=== PATIENT | male | born 1960 | race Caucasian/White ===

== ENCOUNTER 2020-11-13 07:40 | Day surgery (SDC) | payer BC ==
[~2020-11-13 07:40] MED LIST: Acetaminophen 325 MG Tab PO SCH; Albuterol 0.083% 2.5 MG/3 ML Neb Soln NEB PRN; Lactated Ringers 1,000 ML IV SCH; Lidocaine 1% 4 ML ONE; Lidocaine 1%/Sod Bicarbonate in NS 8.4% 1 ML Syringe IDERM PRN; Midazolam 1 MG/ML 2 ML SDV ONE; Ondansetron 4 MG/2 ML SDV ONE; Pregabalin 25 MG Cap PO SCH; Propofol 200 MG/20 ML SDV ONE; Scopolamine 1.5 MG Transdermal Patch TRDERM SCH; Sodium Chloride 0.9% 10 ML Syringe FLUSH PRN; ceFAZolin 1 GM Vial ONE; fentaNYL 100 MCG/2 ML SDV ONE; oxyCODONE ER 10 MG TAB.ER PO SCH
[2020-11-13] MEDS ORDERED: Ropivacaine 0.5% 5 MG/ML 30 ML SDV ONE (07:43)
[2020-11-13] MEDS ORDERED: EPINEPHrine 1 MG/ML SDV ONE (07:43)
[2020-11-13] MEDS ORDERED: fentaNYL 100 MCG/2 ML SDV IVPUSH PRN (07:51)
[2020-11-13] MEDS ORDERED: Ondansetron 4 MG/2 ML SDV IVPUSH PRN (07:51)
[2020-11-13] MEDS ORDERED: diphenhydrAMINE 50 MG/ML SDV IVPUSH PRN (07:51)
[2020-11-13] MEDS ORDERED: Lidocaine 1% 2 ML ONE (07:52)
--- NOTE | 2020-11-13 07:57 | PCM.PREANE ---
Preanesthetic Assessment - Procedure Proposed Procedure: Right reverse total shoulder arthroplasty - Anesthesia/Transfusion/Family Hx Anesthesia History: Prior Anesthesia Reaction Type of Anesthesia Reaction: Excessive Nausea/Vomiting Family History of Anesthesia Reaction: Yes (nausea/ vomitting) Transfusion History: No Prior Transfusion(s) Intubation History: Unknown - Review of Systems General: No Symptoms Pulmonary: No Symptoms, Other (dust triggers asthma - uses inhaler once a month ) Cardiovascular: No Symptoms Gastrointestinal: No Symptoms Neurological: No Symptoms Other: Reports: None - Physical Assessment NPO Status Date: 11/12/20 NPO Status Time: 00:00 Height: 71 cm Weight: 93 kg ASA Class: 2 Mental Status: Alert & Oriented x3 Airway Class: Mallampati = 1 Dentition: Reports: Normal Dentition Thyro-Mental Finger Breadths: 3 Mouth Opening Finger Breadths: 5 ROM/Head Extension: Full Lungs: Clear to Auscultation, Normal Respiratory Effort Cardiovascular: Regular Rate, Regular Rhythm - Lab Values: Laboratory Last Values MRSA (PCR) Negative 11/01/20 14:13 - Allergies Allergies/Adverse Reactions: Allergies Allergy/AdvReac Type Severity Reaction Status Date / Time animal dander Allergy Sneezing Verified 11/10/20 14:09 house dust Allergy Sneezing Verified 11/10/20 14:09 amoxicillin [From Augmentin] AdvReac Chest Pain Verified 11/10/20 15:08 clavulanic acid AdvReac Chest Pain Verified 11/10/20 15:08 [From Augmentin] - Blood Blood Available: No - Anesthesia Plan Pre-Op Medication Ordered: None - Acknowledgements Anesthesia Type Planned: General Anesthesia Pt an Appropriate Candidate for the Planned Anesthesia: Yes Alternatives and Risks of Anesthesia Discussed w Pt/Guardian: Yes Pt/Guardian Understands and Agrees with Anesthesia Plan: Yes PreAnesthesia Questionnaire HEENT History: Reports: Hard of Hearing, Impaired Vision, Other (See Below) Other HEENT History: TMJ disorder, wears glasses, has hearing aides Cardiovascular History: Reports: High Cholesterol Respiratory History: Reports: Asthma Gastrointestinal History: Reports: Gastritis, Other (See Below) Other Gastrointestinal History: reflux Genitourinary History: Reports: None PILLAR MAN History: Reports: None Musculoskeletal History: Reports: Other (See Below) Other Musculoskeletal History: lateral epicondylitis, left rotator cuff repair Neurological History: Reports: None Psychiatric History: Reports: None Endocrine/Metabolic History: Reports: None Hematologic History: Reports: None Immunologic History: Reports: None Oncologic (Cancer) History: Reports: None - Past Surgical History Head Surgeries/Procedures: Reports: None HEENT Surgical History: Reports: Tonsillectomy Cardiovascular Surgical History: Reports: None Respiratory Surgical History: Reports: None GI Surgical History: Reports: Appendectomy, Cholecystectomy, EGD Female Surgical History: Reports: None Male Surgical History: Reports: None Endocrine Surgical History: Reports: None Neurological Surgical History: Reports: C-Spine, Other (See Below) Other Neurological Surgeries/Procedures: [id number] fusion Oncologic Surgical History: Reports: None Dermatological Surgical History: Reports: None - SUBSTANCE USE Tobacco Use Status *Q: Never Tobacco User Days Per Week of Alcohol Use: 3 Number of Drinks Per Day: 2 Total Drinks Per Week: 6 Recreational Drug Use History: No - HOME MEDS Home Medications: Home Meds Albuterol [Ventolin HFA] 2 puff INH Q4H PRN 11/10/20 [History] Ibuprofen 400 mg PO Q6H PRN 11/10/20 [History] Multivitamin 1 tab PO DAILY 11/10/20 [History] [place]-3 Fatty Acids/Fish Oil [Fish Oil 1,000 mg Capsule] 1 cap PO DAILY 11/10/20 [History] Turmeric Root Extract [Turmeric Curcumin] 500 mg PO DAILY 11/10/20 [History] Aspirin [Aspirin EC] 325 mg PO DAILY #40 tablet.dr 11/13/20 [Rx] Cyclobenzaprine [Flexeril] 10 mg PO BID PRN #20 tab 11/13/20 [Rx] oxyCODONE 5 - 10 mg PO Q4H PRN #40 tab 11/13/20 [Rx] - CURRENT (IN HOUSE) MEDS Current Meds: Current Medications Acetaminophen (Tylenol) 975 mg PO ONETIME ROLANDO Stop: 11/13/20 14:00 Last Admin: 11/13/20 07:50 Dose: 975 mg Documented by: Albuterol (Proventil Neb Soln) 2.5 mg NEB ONETIME PRN PRN Reason: Asthma Stop: 11/13/20 18:00 Lactated Ringer's (Ringers, Lactated) 1,000 mls @ 125 mls/hr IV ASDIRECTED ROLANDO Stop: 11/13/20 23:00 Lidocaine/Sodium Bicarbonate (Buffered Lidocaine 1% In Ns 8.4%) 0.25 ml IDERM ONETIME PRN PRN Reason: Prior to IV Start Stop: 11/13/20 18:00 Oxycodone HCl (Oxycontin) 10 mg PO ONETIME ROLANDO Stop: 11/13/20 14:00 Last Admin: 11/13/20 07:50 Dose: 10 mg Documented by: Pregabalin (Lyrica) 50 mg PO ONETIME ROLANDO Stop: 11/13/20 14:00 Last Admin: 11/13/20 07:50 Dose: 50 mg Documented by: Scopolamine (Transderm-Scop) 1.5 mg TRDERM ONETIME ROLANDO Stop: 11/13/20 14:00 Last Admin: 11/13/20 07:51 Dose: 1.5 mg Documented by: Sodium Chloride (Saline Flush) 10 ml FLUSH ASDIRECTED PRN PRN Reason: Keep Vein Open Stop: 11/13/20 18:00 Discontinued Medications Cefazolin Sodium (Ancef) Confirm Administered Dose 2 gm .ROUTE .STK-MED ONE Stop: 11/13/20 07:40 Epinephrine HCl (Adrenalin) Confirm Administered Dose 1 mg .ROUTE .STK-MED ONE Stop: 11/13/20 07:44 Fentanyl (Sublimaze) Confirm Administered Dose 100 mcg .ROUTE .STK-MED ONE Stop: 11/13/20 07:32 Lidocaine HCl (Xylocaine-Mpf 1%) Confirm Administered Dose 4 mls @ as directed .ROUTE .STK-MED ONE Stop: 11/13/20 07:32 Midazolam HCl (Versed 1 Mg/Ml) Confirm Administered Dose 2 mg .ROUTE .STK-MED ONE Stop: 11/13/20 07:32 Ondansetron HCl (Zofran) Confirm Administered Dose 4 mg .ROUTE .STK-MED ONE Stop: 11/13/20 07:40 Propofol (Diprivan 20 Ml) Confirm Administered Dose 400 mg .ROUTE .STK-MED ONE Stop: 11/13/20 07:32 Ropivacaine (Naropin 0.5%) Confirm Administered Dose 30 ml .ROUTE .STK-MED ONE Stop: 11/13/20 07:44
[2020-11-13] MEDS ORDERED: Vancomycin 1 GM SDV ONE (08:12)
--- NOTE | 2020-11-13 08:38 | PCM.SN.2 ---
- Free Text/Narrative Note: Date: 11/13/2020 Time Out: 814 Start: 814 Stop: 824 Surgical Procedure: Right reverse total shoulder arthroplasty Diagnosis Right Shoulder OA Current Procedure: Right interscalene block under US guidance for postoperative pain control requested by Dr. Singh. Patient chart reviewed, risk/benefits discussed with patient, consent obtained. Patient positioned supine, monitors/alarms on, oxygen placed via nasal cannula at 2 LPM. IV sedation administered: Versed 2mg IV, Fentanyl 100mcg IV given in preop prior to block placement. Right shoulder prepped with two chloropreps. Sterile drapes placed with aseptic technique noted. Under US guidance, right subclavian artery visualized along with the right brachial plexus. Plexus followed up to C6 cricoid level, and area localized with 2mls of 1% lidocaine. 22gauge 2 inch stimiplex needle advanced under US with 0.6mV with stimulation of biceps noted. Good stimulation noted with decreased voltage and absent at 0.3mVs. 1ml of Normal Saline injected with loss of stimulation noted to confirm needle not placed intraneurally. Incremental dosing of 5mls with negative aspiration noted prior to each injection of 0.5% ropivacaine with 1:200,000 epinephrine. Total volume=30mls. Please refer to nurses noted for vital signs. Andrew Hart CRNA
[2020-11-13] MEDS ORDERED: fentaNYL 100 MCG/2 ML SDV ONE (09:03)
[2020-11-13] MEDS ORDERED: Lactated Ringers 1,000 ML ONE (09:49)
[2020-11-13] MEDS ORDERED: Ketorolac 30 MG/ML SDV ONE (11:05)
--- NOTE | 2020-11-13 11:06 | CR ---
Right shoulder: 2 views of the right shoulder were obtained utilizing C-arm device. Study shows a right shoulder prosthesis of a reverse type. No gross underlying bony abnormality is seen. Fluoroscopy time given is 6.9 seconds. Impression: 1. Procedural study as noted above. Diagnostic code #2
--- NOTE | 2020-11-13 11:29 | PCM.POSTAN ---
POST ANESTHESIA ASSESSMENT - MENTAL STATUS Mental Status: Other - VITAL SIGNS Vital Signs: Last Vital Signs Temp 36.1 C 11/13/20 11:18 Pulse 77 11/13/20 11:18 Resp 8 L 11/13/20 11:18 BP 134/75 11/13/20 11:18 Pulse Ox 96 11/13/20 11:18 - RESPIRATORY Respiratory Status: Respiratory Rate WNL, Airway Patent, O2 Saturation Stable, Supplemental Oxygen - CARDIOVASCULAR CV Status: Pulse Rate WNL, Blood Pressure Stable - GASTROINTESTINAL GI Status: No Symptoms - PAIN Pain Score: 0
--- NOTE | 2020-11-14 09:10 | CR ---
Right shoulder: Single portable view of the right shoulder was obtained labeled postop. Comparison: Prior fluoroscopic right shoulder study performed in the operating room performed earlier on the same date. Findings: Reverse right shoulder prosthesis is seen. Components are aligned. Underlying bony structures are intact. Minimal degenerative change is seen within the acromioclavicular joint. Impression: 1. Recently placed right shoulder prosthesis. 2. Minimal degenerative change within the acromioclavicular joint. Diagnostic code #2
--- NOTE | 2020-11-22 10:33 | PCM.OPNOTE ---
- General Post-Op/Procedure Note Date of Surgery/Procedure: 11/13/20 Operative Procedure(s): right reverse total shoulder arthroplasty Pre Op Diagnosis: right shoulder rotator cuff tear arthropathy Post-Op Diagnosis: Same Anesthesia Technique: General ET Tube, Regional Block Primary Surgeon: Paul Singh Anesthesia Provider: Crissy Carey Disassembler Product: Salma Peres Disassembler Product: Edith Gallagher EBL in mLs: 100 Complications: None Condition: Good Free Text/Narrative:: 16 stem 28 base plate 36+6 glenosphere +4 liner
--- NOTE | 2020-12-04 07:46 | OR ---
DATE OF OPERATION: 11/13/2020 SURGEON: Paul Singh MD OPERATION PERFORMED: Right reverse total shoulder arthroplasty. PREOPERATIVE DIAGNOSIS: Right shoulder rotator cuff tear arthropathy. POSTOPERATIVE DIAGNOSIS: Right shoulder rotator cuff tear arthropathy. ANESTHESIA: General endotracheal intubation with regional interscalene block. ANESTHESIA PROVIDER: Crissy Carey. TURKEY BONER: Salma Peres PA-C and Edith Gallagher LPN. ESTIMATED BLOOD LOSS: 100 mL. COMPLICATIONS: None. CONDITION: Stable. IMPLANTS: 1. [place] size 16 135 degree humeral stem. 2. [place] size 28 mm concentric base plate. 3. [place] size 36 +6 glenosphere. 4. Partridge size 36 +4 liner. DESCRIPTION OF PROCEDURE: The patient was identified in the preoperative holding area. Proper site was marked and identified by surgeon. The patient was taken back to the operative theater, where after adequate anesthesia, the patient's right upper extremity was sterilely prepped and draped in the usual sterile fashion. OR time-out was performed. The patient received 2 g IV Ancef. The patient was placed in a reverse Trendelenburg position. Standard deltopectoral incision was made. Cephalic vein was identified and was retracted laterally with the deltoid. Clavipectoral fascia was then incised and the conjoined tendon was retracted medially. Anterior and humeral circumflex vessels were ligated. Biceps tendon was identified and the sheath was opened and a biceps tenodesis was performed near the level of the pectoralis major. It was resected proximally to this and was taken all the way back down to the level of the glenoid. Subscapularis tendon then had a peel down of it as well as capsule off the humeral head. The humeral head resection was completed and was found to be adequate. Attention was turned to the glenoid. Anterior and posterior glenoid retractors were placed. Circumferential removal of any remaining labrum and biceps was done at this time. A guide pin was then placed in a center-center position with roughly 10-degree inferior tilt. 28 mm concentric reamer was then utilized and was found to have a good bony bleeding bed with a positive smile sign. The guide pin was then removed, central screw hole was then measured, and the glenoid base plate was then fixated to the glenoid with the central compression screw which found adequate compression. An inferior and superior locking screw were then placed and was found to have adequate positioning. The 36 +6 glenosphere was then impacted in place and attention was turned back to the humerus. Starting with a starter awl, I used reamers for the hand reamers for the canal up to a size 16. Then, I was able to broach up to a size 16 which was found to be rotationally and vertically stable. Trial implants were then placed. The patient's shoulder was relocated. C-arm fluoroscopy was utilized making sure all parts were positioned well, they were. The patient's shoulder was stable throughout range of motion. No signs of loosening or liftoff. Shoulder was then dislocated. Trial implants were then removed. The implants were then constructed on the back table with a +4 liner. These were then en bloc impacted into the humerus and was reduced again. C-arm fluoroscopy again was utilized to make sure there were no fractures and all parts were well aligned. At this time, 1 L of IrriSept irrigation was irrigated through the shoulder along with 1 L pulse lavage irrigation with Ancef. Topical tranexamic acid and vancomycin powder were applied. 2-0 Vicryl was used subcutaneously. Prineo was used for closure of skin. The patient was placed in a sterile soft dressing and a pillow sling. MMODAL /[id number]
== END 2020-11-13 14:20 | disposition home or self-care (01) ==
LOC: JD.SDS 07:40
PROVIDERS: ATTEND Orthopaedic Surgery
DX: M75.101 Unspecified rotator cuff tear or rupture of right shoulder, not specified as traumatic (principal); M12.811 Other specific arthropathies, not elsewhere classified, right shoulder; E78.49 Other hyperlipidemia; J45.909 Unspecified asthma, uncomplicated; G89.18 Other acute postprocedural pain; E78.00 Pure hypercholesterolemia, unspecified; Z79.82 Long term (current) use of aspirin; Z98.890 Other specified postprocedural states; Z79.899 Other long term (current) drug therapy; Z80.0 Family history of malignant neoplasm of digestive organs; Z88.8 Allergy status to other drugs, medicaments and biological substances; Z90.49 Acquired absence of other specified parts of digestive tract
CPT/HCPCS: 23474; 73020; 76000; 87641; 97110; 97161; 97165; A9270; C1713; C1769; C1776; J0171; J0690; J1885; J2001; J2250; J2405; J2704; J2710; J2795; J3010; J3370; J7120; 01638; 64415

== ENCOUNTER 2024-11-02 06:23 | Day surgery (SDC) | payer BC ==
[~2024-11-02 06:23] MED LIST changes: -Acetaminophen 325 MG Tab PO SCH; -Albuterol 0.083% 2.5 MG/3 ML Neb Soln NEB PRN; -Lactated Ringers 1,000 ML IV SCH; -Lidocaine 1% 4 ML ONE; -Lidocaine 1%/Sod Bicarbonate in NS 8.4% 1 ML Syringe IDERM PRN; -Midazolam 1 MG/ML 2 ML SDV ONE; -Ondansetron 4 MG/2 ML SDV ONE; -Pregabalin 25 MG Cap PO SCH; -Propofol 200 MG/20 ML SDV ONE; -Scopolamine 1.5 MG Transdermal Patch TRDERM SCH; +Sodium Chloride 0.9% 10 ML Syringe FLUSH SCH; -ceFAZolin 1 GM Vial ONE; -fentaNYL 100 MCG/2 ML SDV ONE; -oxyCODONE ER 10 MG TAB.ER PO SCH
[2024-11-02] MEDS ORDERED: Propofol 200 MG/20 ML SDV ONE (06:41)
[2024-11-02] MEDS ORDERED: fentaNYL 100 MCG/2 ML SDV ONE (06:42)
[2024-11-02] MEDS ORDERED: Lidocaine 1% 4 ML ONE (06:42)
[2024-11-02] MEDS: Lactated Ringers 1,000 ML IV SCH (07:00)
== END 2024-11-02 08:34 | disposition home or self-care (01) ==
LOC: JD.SDS 06:23
PROVIDERS: ATTEND Surgery
DX: Z12.11 Encounter for screening for malignant neoplasm of colon (principal); D12.3 Benign neoplasm of transverse colon; D12.4 Benign neoplasm of descending colon; K57.30 Diverticulosis of large intestine without perforation or abscess without bleeding; I10 Essential (primary) hypertension; E78.00 Pure hypercholesterolemia, unspecified; I25.10 Atherosclerotic heart disease of native coronary artery without angina pectoris; J45.909 Unspecified asthma, uncomplicated; Z79.899 Other long term (current) drug therapy; Z88.0 Allergy status to penicillin
CPT/HCPCS: 45380; J2704; J3010; J7120; 00811; J3490